=== PATIENT | female | born 1990 | race Caucasian/White ===

== ENCOUNTER 2018-09-06 14:57 | Emergency (ER) | payer SELFPAY ==
[~2018-09-06] VITALS: Ht 167.6 cm; Wt 102.0 kg
[2018-09-06] MEDS ORDERED: MIDAZOLAM 1 MG/ML, 2ML ONE ×2 (15:17→15:28)
[2018-09-06] MEDS ORDERED: MIDAZOLAM 1 MG/ML, 5ML IM ONE (15:30)
[2018-09-06 15:51] VITALS: BP 175/112
[2018-09-06 15:56] LABS: BASOPHILS # (AUTO) 0.07 x10^3/uL (0-0.1); BASOPHILS % (AUTO) 1 % (0-1); EOSINOPHILS # (AUTO) 0.06 x10^3/uL (0-0.4); EOSINOPHILS % (AUTO) 1 % (1-7); LYMPHOCYTES # (AUTO) 3.12 x10^3/uL (1-3.4); LYMPHOCYTES % (AUTO) 32 % (22-44); MD NO; MEAN CORPUSCULAR HGB CONC 32.4 g/dL (32.4-35.8); MEAN CORPUSCULAR VOLUME 95.9 fL (80-100); MEAN PLATELET VOLUME 9.5 fL (7.4-10.4); MONOCYTES % (AUTO) 6 % (2-9); NEUTROPHILS # (AUTO) 6.03 x10^3/uL (1.8-6.8); NEUTROPHILS % (AUTO) 61 % (42-75); PLATELET COUNT 296 x10^3/uL (130-400); RED BLOOD COUNT 5.16 x10^6/uL (3.82-5.3); RED CELL DISTRIBUTION WIDTH 13.3 % (9.6-15.2)
[2018-09-06 16:06] LABS: ALBUMIN 4.5 g/dL (3.4-5.0); ANION GAP 9 mmol/L (5-15); CHLORIDE 108 mmol/L (98-107); SALICYLATE LEVEL < 1.7 mg/dL (2.8-20.0)
--- NOTE | 2018-09-06 16:07 | NUR ---
Offered toileting to pt. Pt aware of need of UA. Pt promptly replied, "No."
[2018-09-06 16:11] LABS: ACETAMINOPHEN < 2 mcg/mL (10-30); ALANINE AMINOTRANSFERASE 51 U/L (12-78); ALKALINE PHOSPHATASE 138 U/L (45-117); BILIRUBIN,TOTAL 0.5 mg/dL (0.2-1.0); CREATININE 0.95 mg/dL (0.55-1.02); TOTAL PROTEIN 8.8 g/dL (6.4-8.2); TROPONIN I < 0.015 ng/mL (0.000-0.045)
--- NOTE | 2018-09-06 16:12 | NUR ---
LATE NOTE VIKI FOR 1530: Pt brought in by EMS with c/o altered mental status and HTN at 193/112 with HR 110-120's, FSBG 172 by EMS, SPO2% 90%-100% on room air. Pt presents to EMS and ED staff agitated, with no physical complaints. Pt states, "Why the fuck am I here, what the fuck is going on?". Pt's co-workers and enriqueta came with pt. Per co-workers, "at lunch her speech was off, she was using the wrong tense of words, it wasn't like her, she is not agitated like this towards us at all." Per enriqueta, last know normal was 1230, and fiance states, "I called her at 1:30 (pm) to wake her up from her nap she was taking in her car. Her speech was off." Per pt's co-workers, "she was having trouble figuring out how to get back into the building. She doesn't seem to have any memory of the last hour."
--- NOTE | 2018-09-06 16:24 | NUR ---
Pt left AMA, pt refusing to sign AMA paperwork. Pt ambulates to discharged with steady gait and balance, no acute defecits observed, pt left with all personal belongings.
--- NOTE | 2018-09-06 16:27 | NUR ---
LATE NOTE ENTRY FOR 1530: Pt allowed ED RN to provided medication per EMAR. Pt allowed for vital signs to be taken and for EKG and breathalyzer to be performed. Pt agreed to have CT, x-ray, and labs to be drawn. ED RN asking health questions from pt. Pt states, "I am not talking anymore. Please stop talking to me."
== END 2018-09-06 16:33 | disposition left against medical advice (07) ==
LOC: ED 16:27
DX: R40.4 Transient alteration of awareness (principal); R41.0 Disorientation, unspecified; R45.1 Restlessness and agitation; I10 Essential (primary) hypertension; F41.9 Anxiety disorder, unspecified
CPT/HCPCS: 36415; 70450; 71045; 80053; 80307; 80329; 82140; 83605; 84484; 85025; 93005; 96372; 99291; J2250; G0480

== ENCOUNTER → 2018-09-20 | Outpatient (CLI) | payer OTHER | END | disposition home or self-care (01) | LOC: CVU 14:20 | PROVIDERS: ATTEND Internal Medicine Cardiovascular Disease | DX: R55 Syncope and collapse (principal); I10 Essential (primary) hypertension | CPT/HCPCS: 93306 ==